=== PATIENT | female | born 1960 | race Caucasian/White ===

== ENCOUNTER 2016-09-20 23:24 | Emergency (ER) | payer OTHER ==
[~2016-09-20] VITALS: Ht 172.7 cm; Wt 131.8 kg
[~2016-09-20 23:24] MED LIST: AMBIEN10 M1 PO; ASPI81TA3 PO; CLON0.1T14 PO; LEVO500T16 PO; METR500T PO; TOLT4CAP PO; VENL75CA2 PO; VERAMYST INH
[2016-09-20 23:33] VITALS: BP 158/104; PULSE 94; RESP 20; O2SAT 98
[2016-09-21 00:26] LABS: BASOPHILS % (AUTO) 0.2 % (0-3); EOSINOPHILS % (AUTO) 0.6 % (0-5); MONOCYTES % (AUTO) 8.7 % (4-12); Mean Corpuscular Hemoglobin 30.1 pg (27.0-35.0); Mean Corpuscular Volume 84.8 fL (81-100); NEUTROPHILS % (AUTO) 73.9 % (40-74); Platelet Count 212 bil/L (150-400)
--- NOTE | 2016-09-21 00:41 | ED.REPORT ---
HPI-Abd Pain F 40 and Over Date of Service Sep 21, 2016 ED Provider: MD Compa This is a 56 year old female with a history of diverticulitis, hypertension, DVT , PE presenting to the emergency department complaining of diffuse, intermittent abdominal pain that began 5 days ago. Pain is progressively worsening, associated with fever and dysuria. Denies nausea, vomiting, diarrhea , or constipation. Nursing Notes Stated Complaint: ABDOMINAL PAIN Chief Complaint: Female Abdominal Pain Nursing Notes Reviewed: Yes Allergies: Coded Allergies: Sulfa (Sulfonamide Antibiotics) (Verified Allergy, Severe, HIVES, 09/20/16) HIVES IN MOUTH AND TORSO latex (Verified Allergy, Unknown, 09/20/16) Scheduled ([Veramyst]) 4 PUFFS INH DAILY Amoxicillin/Clav K 875-125 mg (Augmentin 875-125 mg) 1 Each Tablet 1 TABLET PO BID Levofloxacin (Levaquin) 500 Mg Tablet 500 MG PO DAILY Metronidazole (Flagyl) 500 Mg Tablet 500 MG PO Q8H Venlafaxine-Expunged Drug, Do Not Renew! (Effexor XR-Expunged Drug, Do Not Renew !) 75 Mg Cap.er 225 MG PO DAILY Scheduled PRN Ondansetron ODT (Zofran ODT) 4 Mg Tablet 4 MG PO Q4H PRN PRN For Nausea Miscellaneous Medications Aspirin-Expunged Drug, Do Not Renew! (Aspirin-Expunged Drug, Do Not Renew!) 81 Mg Tab.chew 81 MG PO Clonidine-Expunged Drug, Do Not Renew! (Clonidine-Expunged Drug, Do Not Renew!) 0.1 Mg Tablet 0.1 MG PO Tolterodine-Expunged Drug, Do Not Renew! (Tolterodine LA-Expunged Drug, Do Not Renew!) 4 Mg Cap.sr.24h 4 MG PO Zolpidem-Expunged Drug, Do Not Renew! (Zolpidem-Expunged Drug, Do Not Renew!) 10 Mg Tablet 10 MG PO General Time Seen by MD: 00:41 Chief Complaint Abdominal pain Hx Obtained From: Patient Arrived By: Walk-in Sudden in Onset?: Yes Onset Occurred: 5 days ago Symptom Duration: Since onset Severity: Current: Moderate Pertinent Negative: Pt denies other symptoms Recent Healthcare: No recent doctor visit, No recent hospitalization Similar Sx Previous: No Past Medical History Past Medical History Diverticulitis DVT PE Depresson Kidney stones Urinary incontinence. Reports: Hypertension Past Surgical History Carpal Tunnel Tubal ligation Reports: Hysterectomy Ambulatory Status Independent Review of Systems Constitutional: Reports: Chills, Fever Respiratory: Denies: Non-productive cough, Shortness of breath GI: Reports: Abdominal pain, Denies: Constipation, Diarrhea, Nausea, Vomiting Female: Reports: Dysuria Complete sys rev & neg: except as marked. Physical Exam Vital Signs Vital Signs (First) Date Time Temp Pulse Resp B/P Pulse Ox O2 Delivery O2 Flow Rate FiO2 09/20/16 23:33 36.9 94 20 158/104 98 Room Air Initial VS: Reviewed Head / Eyes: Atraumatic, Normocephalic, PERRL ENT: Mucous membranes moist, Conjunctiva normal, No scleral icterus Neck: Supple, Non-tender, Full range of motion Extremities: Vascular intact, Neuro intact, No swelling, No tenderness Skin: Warm, Dry, No cyanosis Neurologic: Alert, Oriented, Nonfocal Psychiatric: Mood/affect normal, Behavior normal, Normal thought content General/Constitutional: Awake, Alert Respiratory / Chest: Breath sounds NL, Breath sounds = bilat, No respiratory distress, No rales, No rhonchi, No wheezing, No stridor Cardiovascular: Heart rate NL, Regular rhythm, Heart sounds NL, Peripheral circulation NL Abdomen: BS normoactive Tenderness/Guarding/Rebound: Positive: Guarding involuntary, Rebound diffuse, Tender LLQ... (worse in LLQ ), Tender diffuse Back: Inspection NL, Non-tender, No CVA tenderness Interpretation & Diagnostics CT ABD PELVIS CONCLUSION: Diverticulitis in the mid sigmoid colon. No abscess, perforation or other complication. Scattered diverticulosis elsewhere. 3 low density lesions in the liver, probably cysts. Correlate with history to determine if followup to confirm benign cysts as indicated. Radiologist: Lencho Bautista MD Lab Results Interpretation Result Diagram: 09/21/16 0018 09/21/16 0018 Test 09/21/16 00:18 09/21/16 01:00 White Blood Count 10.2th/mm3 (3.8-10.1) Red Blood Count 4.88mil/mm3 (3.90-5.20) Hemoglobin 14.7g/dL (12.0-15.6) Hematocrit 41.4% (35.0-46.0) Mean Corpuscular Volume 84.8fL (81-100) Mean Corpuscular Hemoglobin 30.1pg (27.0-35.0) Mean Corpuscular Hemoglobin Concent 35.5% (32.0-37.0) Red Cell Distribution Width 12.7% (12.3-15.4) Platelet Count 212bil/L (150-400) Neutrophils (%) (Auto) 73.9% (40-74) Lymphocytes (%) (Auto) 16.4% (14-46) Monocytes (%) (Auto) 8.7% (4-12) Eosinophils (%) (Auto) 0.6% (0-5) Basophils (%) (Auto) 0.2% (0-3) Sodium Level 139mEq/L (134-144) Potassium Level 4.1mEq/L (3.5-5.2) Chloride Level 102mEq/L (97-108) Carbon Dioxide Level 25mmol/L (18-29) Blood Urea Nitrogen 9mg/dL (6-24) Creatinine 0.70mg/dL (0.57-1.00) Estimat Glomerular Filtration Rate 124mL/min (>59) Glucose Level 126mg/dL (60-99) Calcium Level 9.4mg/dL (8.5-10.1) Magnesium Level 1.7mg/dL (1.6-2.6) Total Bilirubin 0.5mg/dL (0.0-1.2) Aspartate Amino Transf (AST/SGOT) 15U/L (0-50) Alanine Aminotransferase (ALT/SGPT) 15U/L (0-32) Alkaline Phosphatase 79U/L (25-150) Total Protein 8.0g/dL (6.4-8.4) Albumin 4.0g/dL (3.4-5.0) Lipase 37U/L (13-60) Hold [place] Top Tube Received (Received) Urine Color Yellow (YELLOW) Urine Appearance Clear (CLEAR,HAZY) Urine pH 6.5 (5.0-8.0) Urine Specific Cordell 1.010 (1.003-1.035) Urine Protein Negativemg/dL (NEG,TRACE) Urine Glucose (UA) Negativemg/dL (NEGATIVE) Urine Ketones Negativemg/dL (NEGATIVE) Urine Occult Blood Negative (NEGATIVE) Urine Nitrite Negative (NEGATIVE) Urine Bilirubin Negative (NEGATIVE) Urine Urobilinogen Normalmg/dL (NORMAL) Urine Leukocyte Esterase Trace (NEGATIVE) Urine RBC 0-2/hpf (0-2) Urine WBC 0-5/hpf (0-5) Urine Epithelial Cells Few/hpf (NONE-MOD) Urine Crystals None seen (NONE SEEN) Urine Bacteria Few/hpf (NONE-FEW) Urine Hyaline Casts Rare/lpf (NONE) Urine Granular Casts None seen (NONE SEEN) Urine Waxy Casts None seen (NONE SEEN) Urine Red Blood Cell Casts None seen (NONE SEEN) Urine White Blood Cell Casts None seen (NONE SEEN) Urine Mucus Present (None Seen) Urine Trichomonas None seen (NONE SEEN) Urine Yeast None (NONE SEEN) Urinalysis Comment None Urine Culture Reflexed Indicated Hold Urine Received (Received) Re-Eval/Medical Decision Med Decision/Clinical Course 56-year-old female with past medical history of kidney stones, diverticulitis, hypertension, depression here with generalized abdominal pain over the last several days which is has been getting progressively worse, and associated with subjective fevers at home. Differential diagnosis includes but is not limited to diverticulitis versus urinary tract infection versus pancreatitis versus kidney stone. Labs are remarkable for mild leukocytosis, otherwise normal CBC. CMP shows mild hyperglycemia, otherwise normal. Urinalysis is negative for UTI. Her CT scan shows sigmoid diverticulitis without complication or abscess. Patient was given her first dose of Augmentin in the emergency department, and discharged with Augmentin and Zofran. She is aware and amenable to discharge, and has been given strict return precautions. She will follow up with her primary care physician this week. Re-Evaluation/Progress : Time of Eval: 01:58 Re-Evaluation/Progress Note: Discussed lab and imaging results, plan for d/c, all questions addressed Counseled Regarding: Diagnosis, Lab results, Need for follow-up, When/why to return to ED Discharge & Departure Primary Impression: Diverticulitis Diverticulitis site: unspecified part of intestinal tract Diverticulitis bleeding: without bleeding Diverticulitis complication: without perforation or abscess Qualified Code: K57.92 - Diverticulitis of intestine, part unspecified, without perforation or abscess without bleeding Disposition: Home Discharge Condition All VS Reviewed: Yes Condition: Stable Patient Instructions: Diverticulitis (ED) Additional Instructions: Take Augmentin as prescribed. You may also take Zofran as needed for nausea control. Follow up with your primary care provider, call Thursday to schedule an appointment. Return to the emergency department for any new or worsening symptoms Referrals: Waqar Pruitt DO (PCP) Scribe Attestation Portions of this note were transcribed by Elaine Salvador. I, Dr. Chatman personally performed the history, physical exam and medical decision-making; I reviewed and confirmed the accuracy of the information in the transcribed note. Signed by: tanja Larkin. 09/20/2016, 03:00. Mi Chatman MD Sep 21, 2016 00:41 ELAINE SALVADOR Sep 21, 2016 00:43
[2016-09-21 00:57] LABS: Magnesium 1.7 mg/dL (1.6-2.6)
[2016-09-21] MEDS ORDERED: Ondansetron 2 mg/mL 2 mL Inj IVPUSH ONE (01:05)
[2016-09-21] MEDS ORDERED: HYDROmorphone 1 mg/mL Inj IVPUSH ONE (01:05)
[2016-09-21 01:07] VITALS: BP 181/53; PULSE 98; RESP 16; O2SAT 97
[2016-09-21 01:17] LABS: APPEARANCE,URINE CLEAR (CLEAR,HAZY); COLOR,URINE YELLOW (YELLOW); OCCULT BLOOD,URINE NEGATIVE (NEGATIVE); PH,URINE 6.5 (5.0-8.0); UROBILINOGEN,URINE NORMAL (NORMAL)
[2016-09-21] MEDS ORDERED: 0.9% Sodium Chloride 1,000 ML IV ONE (01:45)
[2016-09-21] MEDS ORDERED: Amoxicillin-Clav 875-125 mg Tablet PO ONE (02:00)
[2016-09-21] MEDS ORDERED: ONDA4TAB9 PO (02:09)
[2016-09-21] MEDS ORDERED: AMOX-366 PO (02:09)
[2016-09-21 02:37] VITALS: BP 136/88; PULSE 78; RESP 16; O2SAT 98
--- NOTE | 2016-09-21 08:13 | DRSVH ---
PROCEDURE: CT ABDOMEN AND PELVIS WITH CONTRAST ([id number]) INDICATIONS: LLQ pain TECHNIQUE: After the administration of intravenous contrast, 5 mm thick sections acquired from the diaphragm to the symphysis. 5 mm coronal and sagittal reformats were acquired. For radiation dose reduction, the following was used: automated exposure control, adjustment of mA and/or kV according to patient siz e. COMPARISON: [facility], CT, CT ABD PELVIS W CON, 05/07/2015, 17:25. FINDINGS: Image quality: Excellent. ABDOMEN: Lung bases: Lung bases are clear. 2 mm nodule in the right lung base on image one is unchanged since the prior study. Heart size is normal. Solid organs: Multiple subcentimeter hypodensities in the liver, technically too small to characteriz e however unchanged and therefore statistically cysts or hemangiomas. Otherwise liver and spleen are normal in size and enhancement. Gallbladder unremarkable. Biliary system is non dilated. Pancreas enhances normally. No adrenal nodules. Kidneys demonstrate normal size and enhancement, without hyd ronephrosis. Peritoneum and bowel: There is are extensive colonic diverticula, with long segment wall thickening a nd pericolonic inflammatory stranding surrounding the sigmoid colon in keeping with acute diverticuli tis. No abscess or free air. Rectum decompressed. Normal appendix. Nodes and vessels: No retroperitoneal or mesenteric adenopathy by size criteria. Aorta and inferior vena cava are normal in size. Miscellaneous: Tiny fat-containing umbilical hernia PELVIS: Genitourinary: Bladder wall thickness is normal. Miscellaneous: No inguinal hernias or adenopathy. Bones: No suspicious bony lesions. No vertebral body compression fractures. IMPRESSION: Sigmoid colonic diverticulitis. No abscess or evidence of free air. Presumed hepatic cysts or hemangiomas, grossly stable as above. Dictated by: Ulises Fitzpatrick M.D. on 09/21/2016 at 8:09 Approved by: Ulises Fitzpatrick M.D. on 09/21/2016 at 8:12
== END 2016-09-21 02:38 | disposition home or self-care (01) ==
LOC: SED 23:24
DX: K57.92 Diverticulitis of intestine, part unspecified, without perforation or abscess without bleeding (principal); R30.0 Dysuria; I10 Essential (primary) hypertension; Z88.2 Allergy status to sulfonamides; Z91.040 Latex allergy status
CPT/HCPCS: 36415; 74177; 80053; 81000; 83690; 83735; 85025; 87086; 87088; 96361; 96374; 96375; 99285; J1170; J2405; J7030; Q9967